=== PATIENT | male | born 1970 | race Caucasian/White ===

== ENCOUNTER 2019-12-01 23:23 | Observation (INO) ==
[2019-12-02] MEDS ORDERED: *HR* HYDROmorphone (PF) 1 MG/ML SYRINGE IVP ONE (00:40)
[2019-12-02] MEDS ORDERED: Isovue-370 500 ML BOTTLE IVP ONE ×2 (00:41→03:14)
[2019-12-02 00:51] LABS: Bilirubin,Urine Negative (Negative); Clarity,Urine Turbid (Clear); Color,Urine Red (Yellow); Glucose,Urine (UA) Normal (Normal)
[2019-12-02 00:52] LABS: Blood,Urine Large (Negative); Ketones,Urine Negative (Negative); Leukocyte Esterase,Urine Trace (Negative); Nitrite,Urine Negative (Negative); Protein,Urine 200 mg/dL (Neg-Trace); Specific Gravity,Urine 1.018 (1.010-1.025); Urobilinogen,Urine Normal (Normal)
[2019-12-02 00:53] LABS: RBC,Urine TNTC per hpf (0-3); WBC,Urine Present per hpf (0-3)
[2019-12-02 01:27] LABS: Basophils % 0.2 %; Eosinophils # 0.2 K/mcL (0.0-0.6); Eosinophils % 2.8 %; Hematocrit 23.9 % (37.5-50.1); Hemoglobin 7.4 g/dL (12.9-16.9); Immature Granulocytes % 0.3 % (0-4); Lymphocytes # 1.8 K/mcL (0.6-4.6); Mean Corpuscular Hemoglobin 24.7 pg (28.0-33.3); Mean Platelet Volume 8.8 fL (9.4-12.4); Monocytes # 0.6 K/mcL (0.0-1.3); Monocytes % 9.8 %; Neutrophils # 3.8 K/mcL (1.6-8.9); Platelet Count 253 K/mcL (140-400); Segmented Neutrophils % 58.9 %; White Blood Count 6.5 K/mcL (4.3-11.1)
[2019-12-02 01:28] LABS: Mean Corpuscular Volume 79.7 fL (83.0-100.0)
[2019-12-02 01:46] LABS: Albumin 2.6 g/dL (3.5-5.7); Albumin/Globulin Ratio 0.6 (1.1-2.2); Bilirubin,Direct 0.2 mg/dL (0.0-0.2); Bilirubin,Total 0.2 mg/dL (0.3-1.0); Calcium 8.4 mg/dL (8.6-10.3); Globulin 4.6 g/dL (2.4-3.5); Potassium 3.5 mEq/L (3.5-5.1); Total Protein 7.2 g/dL (6.4-8.9)
[2019-12-02] MEDS ORDERED: *HR* HYDROmorphone 2 MG/ML SYRINGE IVP ONE (02:25)
[2019-12-02] MEDS ORDERED: *HR* HYDROmorphone 2 MG/ML SYRINGE ONE (02:31)
[2019-12-02 02:42] LABS: INR 1.2; Prothrombin Time 13.1 Seconds (9.4-12.1)
[2019-12-02] MEDS ORDERED: 0.9 % Sodium Chloride 1,000 ML IV ONE (02:52)
[2019-12-02] MEDS ORDERED: Naloxone 0.4 MG/ML INJ IVP PRN ×2 (04:30→11:08)
[2019-12-02] MEDS ORDERED: Morphine Sulfate 2 MG/ML SYRINGE IVP PRN (05:49)
[2019-12-02] MEDS ORDERED: 0.9 % Sodium Chloride 1,000 ML IVC ONE (05:50)
[2019-12-02] MEDS: Pantoprazole 40 MG VIAL IVP SCH ×2 (06:28→18:09)
[2019-12-02 07:18] LABS: Basophils # 0.1 K/mcL (0.0-0.2); Basophils % 0.9 %; Eosinophils # 0.5 K/mcL (0.0-0.6); Eosinophils % 6.9 %; Hematocrit 23.1 % (37.5-50.1); Hemoglobin 7.3 g/dL (12.9-16.9); Immature Granulocytes % 2.2 % (0-4); Lymphocytes # 1.5 K/mcL (0.6-4.6); Lymphocytes % 22.8 %; Mean Corpuscular HGB Conc 31.6 g/dL (31.6-35.5); Mean Corpuscular Hemoglobin 24.8 pg (28.0-33.3); Mean Corpuscular Volume 78.6 fL (83.0-100.0); Mean Platelet Volume 8.8 fL (9.4-12.4); Monocytes # 0.8 K/mcL (0.0-1.3); Monocytes % 12.2 %; Neutrophils # 3.7 K/mcL (1.6-8.9); Nucleated Red Blood Cells 4.6 /100 WBC (0); Platelet Count 240 K/mcL (140-400); Red Blood Count 2.94 M/mcL (4.19-5.50); Red Cell Distribution Width 15.1 % (11.5-14.5); White Blood Count 6.7 K/mcL (4.3-11.1)
[2019-12-02 10:36] LABS: % Iron Saturation 19 % (20-55); Iron 44 mcg/dL (65-175); Transferrin 167 mg/dL (203-362)
[2019-12-02 10:52] LABS: Ferritin 84 ng/mL (20-250)
[2019-12-02] MEDS ORDERED: Acetaminophen 325 MG TABLET PO PRN (11:08)
[2019-12-02] MEDS ORDERED: *HR* HYDROcodone/Acet 5/325 mg TABLET PO PRN (11:08)
[2019-12-02] MEDS ORDERED: 0.9 % Sodium Chloride 1,000 ML IVC SCH (11:15)
[2019-12-02 11:54] LABS: Hemoglobin 7.1 g/dL (12.9-16.9)
[2019-12-02] MEDS ORDERED: cefTRIAXone 1,000 MG in Water for inj. (sterile) 10 ML IVP SCH (12:00)
[2019-12-02] MEDS ORDERED: Perflutren Lipid Microsphere 1.3 ML in 0.9 % Sodium Chloride 8.7 ML IVP PRN (12:06)
[2019-12-02 12:21] LABS: Uric Acid 6.8 mg/dL (2.3-7.6)
[2019-12-02 13:12] LABS: Hepatitis B Core IgM Nonreactive (Nonreactive)
[2019-12-02 13:15] LABS: Hepatitis A Antibody IgM Nonreactive (Nonreactive)
[2019-12-02 13:17] LABS: Hepatitis B Surface Antigen Reactive (Nonreactive)
[2019-12-02 14:53] LABS: Hepatitis C Virus Antibody Reactive (Nonreactive)
[2019-12-02 14:58] LABS: Protein/Creatinine Ratio,Urine 3.42 mg/mg (0.00-0.20)
[2019-12-02 15:04] LABS: Amphetamine Screen,Urine Positive ng/mL (Cutoff=1000); Barbiturate Screen,Urine Negative ng/mL (Cutoff=200); Benzodiazepines Screen,Urine Negative ng/mL (Cutoff=200); Cannabinoid Screen,Urine Negative ng/mL (Cutoff = 50); Cocaine Screen,Urine Negative ng/mL (Cutoff= 300); Opiate Screen,Urine Positive ng/mL (Cutoff=300); Phencyclidine Screen,Urine Negative ng/mL (Cutoff=25)
[2019-12-02 17:27] LABS: Hematocrit 22.3 % (37.5-50.1); Hemoglobin 6.9 g/dL (12.9-16.9)
[2019-12-02] MEDS ORDERED: 0.9 % Sodium Chloride 250 ML IVC SCH (18:00)
[2019-12-02 21:12] VITALS: BP 140/70
== END 2019-12-02 22:29 | disposition short-term general hospital (02) ==
LOC: EMEROOARM 23:23 → 3BNU 23:23 → SUATTDRO 12-02 04:15 → 3BNU 12-02 04:39
PROVIDERS: ADMIT Student in an Organized Health Care Education/Training Program; ATTEND Internal Medicine